=== PATIENT | female | born 1945 | race Two or more races ===

== ENCOUNTER → 2024-02-02 | Outpatient (CLI) | payer SELFPAY | END | disposition home or self-care (01) | LOC: MRI 14:22 | DX: R90.82 White matter disease, unspecified (principal); I67.82 Cerebral ischemia; I63.81 Other cerebral infarction due to occlusion or stenosis of small artery; Z86.73 Personal history of transient ischemic attack (TIA), and cerebral infarction without residual deficits | CPT/HCPCS: 70551 ==